=== PATIENT | female | born 2000 | race African-American/Black ===

== ENCOUNTER 2019-07-13 18:07 | Emergency (ER) | payer SELFPAY ==
[~2019-07-13] VITALS: Ht 154.9 cm; Wt 47.6 kg
[2019-07-13 18:43] VITALS: BP 115/80
--- NOTE | 2019-07-13 18:46 | NUR ---
ED Nurse Note: Pt walked into ED w/ c/o vaginal bleeding since january when had baby. Pt states she's been having non-stop spotting since then. She has also felt weak and dizzy. Pt states she goes through 4 pads a day. Pt is alert and orientedx4, ambulatory. Urine and blood sent to lab.
[2019-07-13 19:04] LABS: APPEARANCE,URINE SLIGHTLY CLOUDY; BILIRUBIN, URINE NEGATIVE (NEGATIVE); COLOR,URINE PALE YELLOW; GLUCOSE, URINE (UA) NEGATIVE (NEGATIVE); KETONES,URINE NEGATIVE (NEGATIVE); LEUKOCYTE ESTERASE ,URINE NEGATIVE (NEGATIVE); NITRITE,URINE NEGATIVE (NEGATIVE); PH,URINE 7 (4.5-8.0); PROTEIN,URINE 2+ (NEGATIVE); UROBILINOGEN,URINE NORMAL MG/DL (0.0-1.0)
--- NOTE | 2019-07-13 19:09 | NUR ---
ED Nurse Note: received report from MARCO Julian. patient in bed in no distress at this time. will continue to monitor
[2019-07-13 19:10] LABS: ANION GAP 11 mmol/L (5-15); BLOOD UREA NITROGEN 7 mg/dL (7-18); CALCIUM 9.7 MG/DL (8.5-10.1); CARBON DIOXIDE 27 MMOL/L (21-32); CHLORIDE 110 MMOL/L (98-107); CREATININE 0.6 MG/DL (0.55-1.30); POTASSIUM 4.2 MMOL/L (3.5-5.1); SODIUM 148 MMOL/L (136-145)
[2019-07-13 19:15] LABS: ALANINE AMINOTRANSFERASE 30 U/L (12-78); ALBUMIN/GLOBULIN RATIO 1.2 (1.0-2.7); ALKALINE PHOSPHATASE 73 U/L (46-116); ASPARTATE AMINO TRANSFERASE 24 U/L (15-37); BILIRUBIN,TOTAL 0.2 MG/DL (0.2-1.0)
[2019-07-13 19:20] LABS: BASOPHILS % (AUTO) 1.2 % (0.0-2.0); EOSINOPHILS % (AUTO) 4.1 % (0.0-3.0); HEMOGLOBIN 13.4 G/DL (12.0-16.0); LYMPHOCYTES % (AUTO) 39.6 % (20.0-45.0); MEAN CORPUSCULAR VOLUME 88 FL (80-99); MONOCYTES % (AUTO) 5.9 % (1.0-10.0); NEUTROPHILS % (AUTO) 49.3 % (45.0-75.0); PLATELET COUNT 449 K/UL (150-450); RED BLOOD COUNT 4.64 M/UL (4.20-5.40); RED CELL DISTRIBUTION WIDTH 13.5 % (11.6-14.8); WHITE BLOOD COUNT 7.2 K/UL (4.8-10.8)
--- NOTE | 2019-07-13 19:38 | Emergency Room Report ---
History of Present Illness General Chief Complaint: Female Urogenital Problems Source: Patient Present Illness HPI 18-year-old female with no significant past medical history here complaining of continuous bleeding after the of her first baby in January 2019. Patient reports that in the past few days she has been clotting and has been recently sexually active with a new partner and not sure whether she is , or has an STD. Reports that she never follow-up with [facility] after the of her first child. Patient is a heavy tobacco smoker and also uses marijuana. Denies any alcohol intake. Denies any syncope, headache and dizziness. Appears to be stable with stable vital signs. Complains of suprapubic pain and pressure. Reports that she uses about 3 or 4 pads a day. In no distress.Patient also complains of sinus pressure, green mucus coming out of his nose x1 week. Denies cough and congestion. Allergies: Coded Allergies: No Known Allergies (Unverified , 07/13/19) Patient History Past Medical History: see triage record Past Surgical History: none Pertinent Family History: none Social History: Reports: smoking Last Menstrual Period: April 2018 Now: No : 1 Para: 1 Reviewed Nursing Documentation: PMH: Agreed; PSxH: Agreed Nursing Documentation-PMH Past Medical History: No Stated History Review of Systems All Other Systems: negative except mentioned in HPI Physical Exam Vital Signs Date Time Temp Pulse Resp B/P (MAP) Pulse Ox O2 Delivery O2 Flow Rate FiO2 07/13/19 18:14 99.0 109 19 120/82 (95) 98 Room Air Sp02 EP Interpretation: reviewed, normal General Appearance: no apparent distress, alert, GCS 15, non-toxic Head: normocephalic, atraumatic Eyes: bilateral eye normal inspection, bilateral eye PERRL ENT: hearing grossly normal, normal pharynx, no angioedema, normal voice, other - Bilateral maxillary sinuses tender to palpation Neck: full range of motion, supple/symm/no masses Respiratory: chest non-tender, lungs clear, normal breath sounds, no rhonchi, no wheezing, speaking full sentences Cardiovascular #1: regular rate, rhythm, no edema, no murmur, normal capillary refill Cardiovascular #2: 2+ carotid (R), 2+ carotid (L), 2+ radial (R), 2+ dorsalis pedis (R), 2+ dorsalis pedis (L) Gastrointestinal: normal bowel sounds, non tender, soft, no mass, no organomegaly, no peritonitis, no bruit, non-distended, no guarding, no pulsatile mass, no rebound Rectal: deferred Genitourinary: no CVA tenderness Musculoskeletal: back normal, digits/nails normal, no calf tenderness, pelvis stable Neurologic: alert, motor strength/tone normal, oriented x3, sensory intact, responsive, speech normal Psychiatric: judgement/insight normal, memory normal, mood/affect normal, no suicidal/homicidal ideation Skin: no rash Lymphatic: no adenopathy Medical Decision Making PA Attestation All my diagnosis and treatment plans were reviewed ad discussed with my supervising physician Dr. Lawton Diagnostic Impression: Primary Impression: Abnormal uterine bleeding Additional Impressions: Sinusitis Encounter for smoking cessation counseling Vaginitis ER Course 18-year-old female with no significant past medical history here complaining of continuous bleeding after the of her first baby in January 2019. Patient reports that in the past few days she has been clotting and has been recently sexually active with a new partner and not sure whether she is , or has an STD. Reports that she never follow-up with [facility] after the of her first child. Patient is a heavy tobacco smoker and also uses marijuana. Denies any alcohol intake. Denies any syncope, headache and dizziness. Appears to be stable with stable vital signs. Complains of suprapubic pain and pressure. Reports that she uses about 3 or 4 pads a day. In no distress. Patient also complains of sinus pressure, green mucus coming out of his nose x1 week. Denies cough and congestion. Ddx considered but are not limited to: UTI, intrauterine , threatened , spontaneous , ectopic , sinusitis, bronchitis, exposure to STD, vaginitis Vital signs: are WNL, pt. is afebrile H&PE are most consistent with: Abnormal uterine bleeding, vaginitis, encounter for smoking cessation, sinusitis ORDERS: UA, urine cx, beta-hCG, CBC, CMP, type and screen, Augmentin, Flonase, Claritin-D, Diflucan ED INTERVENTIONS: NS bolus DISCHARGE: At this time pt. is stable for d/c to home. Will provide printed patient care instructions, and any necessary prescriptions. Care plan and follow up instructions have been discussed with the patient prior to discharge. Patient to follow-up with [facility], patient is not , no uterine fibroids noted. No ovarian cysts noted. Also follow-up primary doctor for further evaluation for continuous bleeding. Also gave list of STD clinics to go and get tested as she rather be tested first for STDs before treatment. If worsening symptoms return to the emergency room. Due to vaginal pruritus I gave a prescription for Diflucan. CT/MRI/US Diagnostic Results CT/MRI/US Diagnostic Results : Imaging Test Ordered: Pelvic ultrasound Impression Uterus measures 7.5 x 4.2 x 3.3 cm. Endometrium measures 2.8 mm in thickness. Right ovary measures 2.9 x 1.3 x 2.8 cm. Multiple follicles in the right ovary. Normal color Doppler flow to the right ovary. Left ovary measures 2.7 x 1.6 x 3.3 cm. Multiple follicles in the left ovary. Dominant follicle measures up to 1.6 cm. Normal color Doppler flow to the left ovary. No free fluid. No adnexal mass. Last Vital Signs Date Time Temp Pulse Resp B/P (MAP) Pulse Ox O2 Delivery O2 Flow Rate FiO2 07/13/19 18:43 99.0 77 19 115/80 99 Room Air Status: improved Disposition: HOME, SELF-CARE Condition: Stable Scripts Loratadine/Pseudoephedrine (CLARITIN-D 12 HOUR TABLET) 1 Each Tab.er.12h 1 TAB ORAL EVERY 12 HOURS, #20 TAB Prov: Kim Luciano PA 07/13/19 Fluconazole (DIFLUCAN) 150 Mg Tablet 150 MG PO ONCE for 1 Day, #1 TAB Prov: Kim Luciano PA 07/13/19 Fluticasone Propionate (Flonase Allergy Relief) 9.9 Ml Venus.susp 2 PUFF NS BID, #10 ML Prov: JenellemoghaKim henriquez PA 07/13/19 Amoxicillin/Potassium Clav 875-125* (AUGMENTIN 875-125 TABLET*) 1 Each Tablet 1 TAB ORAL TWICE A DAY for 10 Days, #20 TAB Prov: Kim Luciano PA 07/13/19 Patient Instructions: Abnormal Uterine Bleeding, [id number], Sinusitis, Adult , [id number], Vaginal Yeast Infection, Adult Additional Instructions: Take medication as directed, follow-up with your primary care provider, you also need to be seen by [facility] [facility] [facility] for further evaluation regarding your abnormal uterine bleeding. If worsening symptoms return to the emergency room Kim Luciano Jul 13, 2019 19:38
[2019-07-13] MEDS ORDERED: FLONASE ALLERG9.9 ML NS (19:40)
[2019-07-13] MEDS ORDERED: AUGMENTIN 875-1 EAC1 ORAL (19:40)
[2019-07-13] MEDS ORDERED: CLARITIN-D 121 EAC1 ORAL (19:40)
[2019-07-13] MEDS ORDERED: DIFLUCAN150 MG PO (19:40)
--- NOTE | 2019-07-13 19:40 | NUR ---
ER DISCHARGE NOTE: Patient is cleared to be discharged per ERMD, pt is aox4, on room air, with stable vital signs. pt was given dc and prescription instructions, pt was able to verbalize understanding, pt id band and iv site removed without complications. pt is able to ambulate with steady gait. pt took all belongings.
[2019-07-13 19:45] VITALS: BP 120/79
--- NOTE | 2019-07-13 19:49 | Diagnostic Imaging Report ---
Indication: Heavy vaginal bleeding, currently negative test, recent delivery 02/03/2019 Technique: Transabdominal and transvaginal images of the pelvis. Doppler interrogation of the ovaries Comparison: none Findings: Uterus measures 7.5 cm in length by 4.2 cm AP. The endometrium measures 3 mm thick. It is unremarkable. No myometrial abnormality. The right ovary measures 2.9 cm length. The left ovary measures 2.7 cm length. No ovarian mass. No free cul-de-sac fluid Impression: Negative This agrees with the preliminary interpretation provided overnight by [facility].
--- NOTE | 2019-07-14 09:42 | Diagnostic Imaging Report ---
Indication: Heavy vaginal bleeding, currently negative test, recent delivery 02/03/2019 Technique: Transabdominal and transvaginal images of the pelvis. Doppler interrogation of the ovaries Comparison: none Findings: Uterus measures 7.5 cm in length by 4.2 cm AP. The endometrium measures 3 mm thick. It is unremarkable. No myometrial abnormality. The right ovary measures 2.9 cm length. The left ovary measures 2.7 cm length. No ovarian mass. No free cul-de-sac fluid Impression: Negative This agrees with the preliminary interpretation provided overnight by [facility].
== END 2019-07-13 19:45 | disposition home or self-care (01) ==
LOC: EMR 19:30
DX: N93.8 Other specified abnormal uterine and vaginal bleeding (principal); N76.0 Acute vaginitis; J32.9 Chronic sinusitis, unspecified; F17.200 Nicotine dependence, unspecified, uncomplicated; F12.90 Cannabis use, unspecified, uncomplicated; Z71.6 Tobacco abuse counseling
CPT/HCPCS: 36415; 76830; 76856; 80053; 81003; 84702; 85025; 86850; 86900; 86901; 99284